=== PATIENT | male | born 1970 | race Caucasian/White ===

== ENCOUNTER 2021-01-26 17:31 | Emergency (ER) | payer OTHER ==
[2021-01-26 18:39] LABS: BASOPHIL 0.4 % (0-2); EOSINOPHIL 2.7 % (0-5); HCT 45.8 % (42.0-52.0); LYMPHOCYTE 28.5 % (15-48); MCH 29.5 pg (25.0-31.0); MCHC 34.9 g/dL (32.0-36.0); MCV 84.5 fL (78.0-100.0); MPV 10.4 fL (6.0-9.5); NRBC 0; PLT 137 K/uL (150-400); RBC 5.42 M/uL (4.70-6.00); RDW 12.1 % (11.5-14.0); WBC 2.6 K/uL (4.0-10.5)
[2021-01-26 18:58] LABS: LACTIC ACID 1.5 mmol/L (0.4-1.9)
[2021-01-26 18:59] LABS: PRO-BNP 27 pg/mL (<125)
[2021-01-26 19:05] LABS: ALBUMIN 3.5 g/dL (3.4-5.0); BILIRUBIN - TOTAL 0.5 mg/dL (0.2-1.0); BUN/CREAT RATIO (CALC) 20.2 RATIO; CREATININE 0.84 mg/dL (0.67-1.17); GLOBULIN (CALCULATION) 3.8 g/dL; POTASSIUM 3.4 mmol/L (3.5-5.1); TOTAL PROTEIN 7.3 g/dL (6.4-8.2)
[2021-01-26] MEDS ORDERED: AZITHROMYCIN250 MG PO (21:21)
== END 2021-01-27 00:10 | disposition home or self-care (01) ==
LOC: FER 17:31
PROVIDERS: Emergency Medicine
DX: U07.1 COVID-19 (principal); N40.0 Benign prostatic hyperplasia without lower urinary tract symptoms; J30.2 Other seasonal allergic rhinitis; Z87.891 Personal history of nicotine dependence; Z79.899 Other long term (current) drug therapy
CPT/HCPCS: 36415; 36600; 71045; 71275; 80053; 82803; 83605; 83880; 84145; 84484; 85025; 85379; 87040; 93005; 94760; J1100; J1885; J7030; J7050; M0239; Q9967